=== PATIENT | female | born 1980 | race Two or more races ===

== ENCOUNTER 2016-09-08 14:43 | Emergency (ER) | payer BC ==
--- NOTE | ~2016-09-08 | ER ---
PATIENT'S NAME: MATTY CHURCH [facility] AGE: 35 Y [address] ROOM: [place] [address] LOCATION: ED ADMIT DATE: 09/08/2016 ER/Outpatient Report DISCHARGE DATE: 09/08/2016 FAMILY PHYSICIAN: PHYSICIAN, SHAUNA ATTENDING PHYSICIAN: Lisa Ron Time of arrival: 1443 hours. Time Seen: 1510 hours. IDENTIFICATION: 35-year-old female. CHIEF COMPLAINT: Vaginal bleeding. HISTORY OF PRESENT ILLNESS: The patient is a 35-year-old G6, P5 female, who had some vaginal bleeding just on the toilet paper. No abdominal pain or cramping. No leaking fluid. No other problems or concerns. ALLERGIES: NO KNOWN DRUG ALLERGIES. CURRENT MEDICATIONS: 1. Progesterone. 2. Metformin. 3. Lantus. MEDICAL PROBLEMS: Diabetes mellitus, insulin requiring. REVIEW OF SYSTEMS: All systems reviewed and negative other than what is noted in the HPI. PHYSICAL EXAMINATION: GENERAL: A 35-year-old female, in no acute distress. HEENT: Unremarkable. LUNGS: Clear to auscultation. HEART: Regular rate and rhythm. ABDOMEN: Soft and nondistended. SKIN: [place], warm, and dry. No lesions or rashes noted. NEUROLOGIC: No focal deficit. DIAGNOSTIC STUDIES: PATIENT'S NAME: MATTY CHURCH [facility] AGE: 35 Y [address] ROOM: [place] [address] LOCATION: [facility] ADMIT DATE: 09/08/2016 ER/Outpatient Report DISCHARGE DATE: 09/08/2016 FAMILY PHYSICIAN: PHYSICIAN, NO ATTENDING PHYSICIAN: Lisa Ron Ultrasound: Early intrauterine with cardiac activity demonstrated, 9 weeks 6 days. UA negative other than for 1000 mg/dL of sugar. Blood type A positive. HCG 35,521 which is consistent with her gestational age. Hemoglobin 13, hematocrit 38.8, platelets 311, white count 8.7 with a normal differential. IMPRESSION: Threatened . PLAN: Pelvic rest, fluids, no lifting, and follow up with Dr. Lee this week. Follow up sooner if any problems or concerns. The patient understands and agrees, and all questions have been answered. MD Martin SANTOS /[id number] d: 09/11/169 t: 09/13/16 0759, OUTPATIENT REPORT
[2016-09-08 15:40] LABS: BASOPHIL % 0.3 %; EOSINOPHIL % 0.3 %; HEMATOCRIT 38.8 % (33.0-46.0); IMMATURE GRANULOCYTE % 0.2 %; LYMPHOCYTE # 2.3 K/uL (0.8-4.0); LYMPHOCYTE % 27.1 %; MCH 28.7 pg (27.0-34.0); MCHC 33.5 gm/dL (32.0-36.5); MCV 85.7 fl (83.0-98.0); MONOCYTE # 0.6 K/uL (0.0-1.0); MONOCYTE % 7.4 %; MPV 9.6 fl (9.4-12.4); NEUTROPHIL # (ANC) 5.6 K/uL (1.8-7.8); NEUTROPHIL % 64.7 %; NRBC % 0 /100WBC (0-0.00); PLATELET COUNT 311 K/uL (150-450); RBC 4.53 M/uL (3.50-5.50); RDW-CV 12.7 % (11.9-14.6); WBC 8.7 K/uL (4.0-11.0)
[2016-09-08 16:22] LABS: BILIRUBIN URINE NEGATIVE (NEGATIVE); BLOOD URINE NEGATIVE /UL (NEGATIVE); COLOR URINE YELLOW (YELLOW); GLUCOSE URINE 1000 mg/dL (NEGATIVE); KETONE URINE NEGATIVE (NEGATIVE); LEUKOCYTES URINE NEGATIVE /UL (NEGATIVE); NITRITE URINE NEGATIVE (NEGATIVE); PROTEIN URINE NEGATIVE (NEGATIVE); TURBIDITY URINE CLEAR (CLEAR); UROBILINOGEN URINE NORMAL (NORMAL)
== END 2016-09-08 16:45 | disposition disaster alternative care site (69) ==
LOC: GMED 14:43
PROVIDERS: Family Medicine
DX: O09.521 Supervision of elderly multigravida, first trimester (principal); O20.0 Threatened abortion; O24.911 Unspecified diabetes mellitus in pregnancy, first trimester; Z79.4 Long term (current) use of insulin; Z3A.09 9 weeks gestation of pregnancy